=== PATIENT | male | born 1945 | race Caucasian/White ===

== ENCOUNTER 2023-04-08 11:53 | Day surgery (SDC) | payer MEDICARE ==
[2023-04-08] VITALS (26 sets, daily range): BP systolic 111–151; BP diastolic 60–88; PULSE 44–69; RESP 11–21; TEMP 99.1; O2SAT 95–99
[~2023-04-08] VITALS: Ht 180.3 cm; Wt 48.1 kg
[~2023-04-08 11:53] MED LIST: AMIO200T72 PO; APIX5TAB3 PO; BISO1TAB39 PO; LEVO100T PO; MULT-1085 PO; SPIR25TA5 PO; TEN1T PO
[2023-04-08] MEDS ORDERED: HYDR12.55 PO (12:23)
[2023-04-08] MEDS ORDERED: CHOL3000 PO (12:23)
[2023-04-08] MEDS ORDERED: VIT1CAPS46 PO (12:23)
[2023-04-08] MEDS ORDERED: FLEC100T PO (12:23)
[2023-04-08] MEDS ORDERED: IRBE150T51 PO (12:23)
[2023-04-08] MEDS ORDERED: ASCO100031 PO (12:23)
[2023-04-08] MEDS ORDERED: AMLO2.5T2 PO (12:23)
[2023-04-08] MEDS ORDERED: normal saline 1000ml 1,000 ML IV SCH ×2 (12:45→12:50)
[2023-04-08] MEDS ORDERED: MIDAZolam 1mg/ml 10ml vial IV ONE ×2 (12:45→12:50)
[2023-04-08] MEDS ORDERED: fentaNYL/PF 50MCG/1 ML 2ML syringe IV ONE ×2 (12:45→12:50)
[2023-04-08 12:48] LABS: BASOPHILS % (AUTO) 0.6 % (0-1); EOSINOPHILS # (AUTO) 0.2 X10'3 (0-0.9); EOSINOPHILS % (AUTO) 2.1 % (0-6); HEMATOCRIT 46.7 % (42.0-52.0); HEMOGLOBIN 15.8 g/dl (14.0-17.9); LYMPHOCYTES # (AUTO) 1.1 X10'3 (1.1-4.8); LYMPHOCYTES % (AUTO) 14.1 % (21-51); MEAN CORPUSCULAR HEMOGLOBIN 32.8 PG (27.0-31.0); MEAN CORPUSCULAR HGB CONC 33.9 g/dL (33.0-36.5); MEAN CORPUSCULAR VOLUME 96.9 FL (78-98); MONOCYTES # (AUTO) 0.8 X10'3 (0-0.9); MONOCYTES % (AUTO) 10.2 % (2-12); NEUTROPHILS # (AUTO) 5.6 X10'3 (1.8-7.7); PLATELET COUNT 237 X10'3 (140-440); RED BLOOD COUNT 4.82 X10'6 (4.70-6.10); RED CELL DISTRIBUTION WIDTH 13.1 % (11.5-14.5); WHITE BLOOD COUNT 7.7 X10'3 (4.5-11.0)
[2023-04-08 12:58] LABS: ALBUMIN 3.6 G/DL (3.4-5.0); ANION GAP 12 (8-16); BLOOD UREA NITROGEN 14 MG/DL (7-18); BUN/CREATININE RATIO 17.5 (10.0-20.0); CALCIUM 9.5 MG/DL (8.5-10.1); CHLORIDE 96 MMOL/L (99-107); GLUCOSE 100 MG/DL (70-104); POTASSIUM 4.3 MMOL/L (3.5-5.1); SODIUM 132 MMOL/L (135-145); TOTAL CARBON DIOXIDE 24.2 MMOL/L (24-32); eCRCL 54 ML/MIN; eGFR > 90 ML/MIN
[2023-04-08 12:59] LABS: PROTHROMBIN TIME 10.8 SECONDS (9.0-12.0)
== END 2023-04-08 16:15 | disposition home or self-care (01) ==
LOC: SSTAY O 11:53
PROVIDERS: ATTEND Internal Medicine Cardiovascular Disease
DX: I48.91 Unspecified atrial fibrillation (principal); I44.7 Left bundle-branch block, unspecified; I10 Essential (primary) hypertension; Z79.01 Long term (current) use of anticoagulants; Z85.46 Personal history of malignant neoplasm of prostate; Z79.899 Other long term (current) drug therapy; Z98.890 Other specified postprocedural states; Z72.89 Other problems related to lifestyle
CPT/HCPCS: 36415; 80048; 83735; 85025; 85610; 92960; 93005; J2250; J3010; J7030; A4620

== ENCOUNTER 2024-09-21 09:05 | Day surgery (SDC) | payer MEDICARE ==
[~2024-09-21] VITALS: Ht 180.3 cm; Wt 107.3 kg
[~2024-09-21 09:05] MED LIST changes: -AMIO200T72 PO; +AMLO2.5T2 PO; +ASCO100031 PO; -BISO1TAB39 PO; +CHOL3000 PO; +FLEC100T PO; +HYDR12.55 PO; +IRBE150T51 PO; +VIT1CAPS46 PO
[2024-09-21] MEDS ORDERED: MIDAZolam 1mg/ml 10ml vial IV ONE (09:40)
[2024-09-21] MEDS ORDERED: normal saline 1000ml 1,000 ML IV SCH (09:40)
[2024-09-21] MEDS ORDERED: fentaNYL/PF 50MCG/1 ML 2ML syringe IV ONE (09:40)
--- NOTE | 2024-09-21 10:01 | ELECTROCARDIOGRAPH REPORT ---
[facility] Test Date: 2024-09-21 Test Time: 09:59:23 Pat Name: RAMOS BRANDON Department: [facility] Patient ID: [id number] Room: Gender: M [employer] Operator: : 1945 Requested By: KIKA PARKER Order Number: [id number] Reading MD: Dr. BRET Alvarez Measurements Intervals [place] Rate: 71 P: 82 RI: 304 QRS: -40 QRSD: 196 T: 119 QT: 485 QTc: 528 Interpretive Statements A-V dual-paced complexes w/ some inhibition No further analysis attempted due to paced rhythm Electronically Signed On 09-21-2024 19:18:[address] BRET Alvarez Please click the below link to view image of tracing.
== END 2024-09-21 11:55 | disposition home or self-care (01) ==
LOC: SSTAY O 09:05
PROVIDERS: ATTEND Internal Medicine Cardiovascular Disease
DX: I48.91 Unspecified atrial fibrillation (principal); Z53.8 Procedure and treatment not carried out for other reasons; I10 Essential (primary) hypertension; E78.5 Hyperlipidemia, unspecified; I44.7 Left bundle-branch block, unspecified; Z79.01 Long term (current) use of anticoagulants; Z98.890 Other specified postprocedural states
CPT/HCPCS: 93005; J7030